=== PATIENT | female | born 1990 | race Caucasian/White ===

== ENCOUNTER 2016-07-27 10:50 | Outpatient (CLI) | payer OTHER, MEDICAID ==
[~2016-07-27 10:50] MED LIST: FEOSOL325 MG PO; TYLENOL #3 DPS1 TAB PO
[2016-08-10] MEDS ORDERED: PRENATAL VIT1 TAB PO (12:51)
[2016-08-10] MEDS ORDERED: NIPPLECREAM TP (12:52)
[2016-08-10] MEDS ORDERED: MOTRIN-DPS800 MG PO (12:52)
[2016-08-10] MEDS ORDERED: LAN-O-SOOTHE7 GM TP (12:53)
[2016-08-10] MEDS ORDERED: DERMOPLAST SPRA56 GM TP (12:53)
== END 2016-07-27 12:44 | disposition home or self-care (01) ==
LOC: 2LDRP 10:50 → BC 10:50 → WOR 10:50 → BC 12:44 → 2LDRP 12:44 → BC 08-12 08:00
DX: O36.8130 Decreased fetal movements, third trimester, not applicable or unspecified (principal); O99.89 Other specified diseases and conditions complicating pregnancy, childbirth and the puerperium; R10.9 Unspecified abdominal pain; Z3A.37 37 weeks gestation of pregnancy

== ENCOUNTER 2016-07-28 19:45 | Outpatient (CLI) | payer OTHER, MEDICAID ==
[2016-08-10] MEDS ORDERED: PRENATAL VIT1 TAB PO (12:51)
[2016-08-10] MEDS ORDERED: MOTRIN-DPS800 MG PO (12:52)
[2016-08-10] MEDS ORDERED: NIPPLECREAM TP (12:52)
[2016-08-10] MEDS ORDERED: LAN-O-SOOTHE7 GM TP (12:53)
[2016-08-10] MEDS ORDERED: DERMOPLAST SPRA56 GM TP (12:53)
== END 2016-07-28 21:00 | disposition home or self-care (01) ==
LOC: 2LDRP 19:45 → BC 19:45
DX: O99.89 Other specified diseases and conditions complicating pregnancy, childbirth and the puerperium (principal); R10.2 Pelvic and perineal pain; Z3A.37 37 weeks gestation of pregnancy

== ENCOUNTER 2016-08-07 18:20 | Inpatient (IN) | payer OTHER, MEDICAID ==
[~2016-08-07] VITALS: Ht 160 cm; Wt 75.7 kg
--- NOTE | ~2016-08-07 | HP ---
ADMIT: 08/07/2016 RM/LOC: 228 [facility] MR#: [id number] [id number] [place], [place] [address] QUINN MORTON [address] [place] [address] History and Physical SEX: F AGE: 25 : 1990 DATE OF SERVICE: HISTORY OF PRESENT ILLNESS: This is a 25-year-old -0-2-3, who presented to Labor and Delivery at 39-2/7th weeks with complaints of contractions. She was not noted to be in active labor; however, on monitoring, she was noted to have intermittent late decelerations. BPP was performed and was 8/10, and the rest of her NST was reactive. Given 39 weeks and with non reassuring status on monitoring, we will decide to proceed with induction of labor. is otherwise uncomplicated. PAST MEDICAL HISTORY: Anemia and history of migraines. PAST SURGICAL HISTORY: None. SOCIAL HISTORY: She works at [employer] as a full-time. Rare alcohol use, not in . She is . No tobacco use. FAMILY HISTORY: Hypertension in maternal grandmother. Mother was born with a hole in her heart. Mother has thyroid issues. Brother has seizure disorder. Maternal aunt has breast cancer. ALLERGIES: NO KNOWN DRUG ALLERGIES. MEDICATIONS: She is on ferrous sulfate daily. OBSTETRIC LABORATORY DATA: GBS negative. Diabetes screen was 123. Hemoglobin was 11.3, platelets were 256. Hepatitis B surface antigen negative. Blood type is A positive. Antibody screen was negative. Syphilis was negative. She is rubella immune. HIV was negative. REVIEW OF SYSTEMS: The patient denies fevers, chills, chest pain, shortness of breath, nausea, vomiting, diarrhea, or constipation. She notes no vaginal bleeding, and she does have contractions. PHYSICAL EXAMINATION: VITAL SIGNS: Blood pressure is 112/64, pulse is 79, she is 99% on room air. heart tones show baseline of 130, moderate variability, positive accelerations. Rare late decelerations upon initial presentation. Contractions are every 5-10 minutes apart. GENERAL: The patient is in no acute distress. ADMIT: 08/07/2016 RM/LOC: 228 [facility] MR#: [id number] [address] [address] QUINN MORTON [address] [place] [address] History and Physical SEX: F AGE: 25 : 1990 HEART: Regular rate and rhythm. No murmurs, rubs, or gallops. LUNGS: Clear to auscultation bilaterally. ABDOMEN: Gravid. Estimated weight approximately 3300 g. CERVIX: Per nursing, she is 2 cm, 50% effaced, and -3 station. EXTREMITIES: No edema. ASSESSMENT AND PLAN: 1. This is a 25-year-old -0-2-3, at 39-2/7th weeks. We are admitting for induction of labor due to nonreassuring status. 2. She is group B streptococcus negative. Prophylaxis is not indicated. 3. We will start Pitocin per protocol. Anticipate normal spontaneous vaginal delivery. Vanessa Baer MD/ stanley JOB #: [id number] CC: Jigar Mckinnon, Attending Physician Jigar Mckinnon, Family Physician
--- NOTE | ~2016-08-07 | FD ---
ADMIT: 08/07/2016 RM/LOC: 228 [facility] MR#: [id number] [address] [facility] [address] QUINN MORTON [address] [place] [address] Final Diagnosis SEX: F AGE: 25 : 1990 ADMISSION DATE: 08/07/2016 DISCHARGE DATE: 08/09/2016 FINAL DIAGNOSES: 1. Term intrauterine at 39 weeks 3 days. 2. Late decelerations on NST (nonstress test). PROCEDURE: Spontaneous vaginal delivery. Vanessa Baer MD/ juan JOB #: [id number] CC: Jigar Mckinnon MD, Attending Physician Jigar Mckinnon MD, Family Physician
[2016-08-10] MEDS ORDERED: PRENATAL VIT1 TAB PO (12:51)
[2016-08-10] MEDS ORDERED: NIPPLECREAM TP (12:52)
[2016-08-10] MEDS ORDERED: MOTRIN-DPS800 MG PO (12:52)
[2016-08-10] MEDS ORDERED: DERMOPLAST SPRA56 GM TP (12:53)
[2016-08-10] MEDS ORDERED: LAN-O-SOOTHE7 GM TP (12:53)
--- NOTE | 2016-08-20 13:03 | OR ---
ADMIT: 08/07/2016 RM/LOC: 228 [facility] MR#: [id number] [address] [address] QUINN MORTON [address] [place] [address] Operative/Delivery Room Report SEX: F AGE: 25 : 1990 SURGERY DATE: 08/08/2016 SURGEON: Vanessa Baer MD PREOPERATIVE DIAGNOSES: 1. Term intrauterine at 39 and 3/7th weeks. 2. Late decelerations on initial NST. POSTOPERATIVE DIAGNOSES: 1. Term intrauterine at 39 and 3/7th weeks. 2. Late decelerations on initial NST. PROCEDURE: Spontaneous vaginal delivery. ESTIMATED BLOOD LOSS: 200 mL. ANESTHESIA: None. FINDINGS: Viable male , with scores of 9 and 9 and a weight of 8 pounds 5 ounces or 3770 g. Intact placenta with 3-vessel cord. No perineal or vaginal lacerations noted. INDICATIONS FOR PROCEDURE: This is a 25-year-old, G6, P3-0-2-3, who presented to Labor and Delivery with complaints of contractions. She was not noted to be in active labor, however, there were late decelerations noted on monitoring. Given she is more than 39 weeks, in late decelerations with concerns for some placental insufficiency it was decided to proceed with induction of labor to reduce risk of intrauterine demise. She was admitted and induced with Pitocin. She progressed normally through labor and was found to be complete. She was GBS negative. Antibiotics were not indicated. AROM was also performed with clear fluid. ADMIT: 08/07/2016 RM/LOC: 228 [facility] MR#: [id number] [address] [address] QUINN MORTON S [address] [place] [address] Operative/Delivery Room Report SEX: F AGE: 25 : 1990 PROCEDURE IN DETAIL: With maternal expulsive efforts, head delivered over intact perineum. No nuchal cord was noted. The rest of the infant then delivered without difficulty. was placed on the mother's chest for skin to skin. Delayed cord clamping was employed x1 minute. The cord was then clamped and cut. Cord blood was obtained. Placenta then delivered spontaneously intact with 3-vessel cord. On examination of the vagina and the perineum, no vaginal or cervical lacerations were noted. COMPLICATIONS: None. DISPOSITION: The patient stable in recovery room. Infant to nursery. Vanessa Baer MD/ stanley JOB #: [id number] CC: Jigar Mckinnon, Attending Physician Jigar Mckinnon, Family Physician
== END 2016-08-09 15:20 | disposition home or self-care (01) | DRG 775 ==
LOC: BC 18:20 → 2LDRP 18:20 → BC 08-12 10:38 → PTH.S 08-12 13:43
DX: O76 Abnormality in fetal heart rate and rhythm complicating labor and delivery (principal); Z37.0 Single live birth; Z3A.39 39 weeks gestation of pregnancy